=== PATIENT | male | born 1980 | race Caucasian/White ===

== ENCOUNTER 2016-03-22 19:49 | Emergency (ER) | payer MEDICARE, MEDICAID ==
[2016-03-22] MEDS ORDERED: LORAZEPAM 2 MG/ML VIAL ONE (21:38)
[2016-03-22] MEDS ORDERED: KEPPRA 500 MG in SOD CHLOR 0.9% INJ 100 ML IV ONE (23:40)
[2016-03-23] MEDS ORDERED: LACOSAMIDE 200 MG TAB PO ONE (00:21)
== END 2016-03-23 01:41 | disposition home or self-care (01) ==
LOC: ER 19:49
DX: R56.9 Unspecified convulsions (principal)
CPT/HCPCS: 36415; 80053; 80165; 81003; 82947; 85025; 96365; 96366; 96375; 99284; J1953; J7050